=== PATIENT | female | born 1935 | race Caucasian/White ===

== ENCOUNTER 2017-07-10 09:49 | Emergency (ER) | payer MEDICARE, MEDICAID ==
[2017-07-10] MEDS ORDERED: Lidocaine 1% MPF wEPI 200,000* 30 ML SDV INJ ONE ×2 (10:08→11:00)
--- NOTE | 2017-07-10 10:08 | ED ---
Laceration/Wound HPI - HPI Summary HPI Summary: 81-year-old male presents with right leg laceration today. States she was stepping off the bus and slipped and cut her right leg. She states the area is actively bleeding. No numbness or tingling. She has a history of neuropathy. She denies any ankle or knee pain. she was able to put some weight on it. She has full range of motion of her ankle. She is unsure when last tetanus was. She denies any foreign body in the wound. She is not diabetic. - History of Current Complaint Stated Complaint: RT LEG LAC Time Seen by Provider: 07/10/17 09:52 Pain Intensity: 3 - Allergy/Home Medications Allergies/Adverse Reactions: Allergies Allergy/AdvReac Type Severity Reaction Status Date / Time MS Sulfa Drugs [Sulfa Drugs] AdvReac Intermediate GI Upset Verified 07/10/17 10: 00 Home Medications: Home Medications Aspirin EC TAB* [Ecotrin EC Low Dose 81 MG*] 81 mg PO DAILY 07/10/17 [History Confirmed 07/10/17] Diltiazem CD CAP* [Cardizem CD CAP*] 180 mg PO DAILY 07/10/17 [History Confirmed 07/10/17] Fluticasone/Umeclidin/Vilanter [Trelegy Ellipta 100-62.5-25 Mcg/INH] 1 aer INH DAILY 07/10/17 [History Confirmed 07/10/17] Gabapentin CAP(*) [Neurontin 300 CAP(*)] 300 mg PO BID PRN 07/10/17 [History Confirmed 07/10/17] Levothyroxine TAB* [Synthroid TAB*] 150 mcg PO DAILY 07/10/17 [History Confirmed 07/10/17] Melatonin (NF) [Meladox] 5 mg PO BEDTIME 07/10/17 [History Confirmed 07/10/17] Pramipexole TAB* [Mirapex TAB*] 0.5 - 1.5 mg PO BEDTIME PRN 07/10/17 [History Confirmed 07/10/17] PMH/Surg Hx/FS Hx/Imm Hx Endocrine/Hematology History: Reports: Other Endocrine/Hematological Disorders - hypothyroid Denies: Hx Diabetes, Hx Systemic Lupus Erythematosus Cardiovascular History: Reports: Hx Angina - PRINZ-METAL ANGINA, Hx Coronary Artery Disease - CHOLESTEROL CONTROL WITH MEDICATION, Hx Hypercholesterolemia, Hx Hypertension Denies: Hx Congestive Heart Failure Respiratory History: Reports: Hx Asthma, Hx Chronic Obstructive Pulmonary Disease (COPD), Other Respiratory Problems/Disorders - COPD GI History: Reports: Hx Diverticulosis, Hx Gastroesophageal Reflux Disease - HISTORY OF, Hx Ulcer History: Denies: Hx Dialysis, Hx Renal Disease Musculoskeletal History: Reports: Hx Arthritis - THUMBS BILAT, Other Musculoskeletal History - left shoulder Denies: Hx Rheumatoid Arthritis Sensory History: Reports: Hx Cataracts - BILATERAL, Hx Contacts or Glasses Denies: Hx Hearing Aid Opthamlomology History: Reports: Hx Cataracts - BILATERAL, Hx Contacts or Glasses Neurological History: Reports: Hx Headaches - LEFT SIDE OCCASIONALLY, Hx Migraine - HX OF, Other Neuro Impairments/Disorders - restless leg Psychiatric History: Reports: Hx Anxiety - per old hx., Hx Post Traumatic Stress Disorder - POSSIBLE - SEES A THERPIST - Cancer History Cancer Type, 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 Hx Chemotherapy: No - Surgical History Surgery Procedure, Year, and Place: cholectsectomy, dedatched labrium, left knee , facelift 98, right chest surgery attempted to remove a nodule 2012 Hx Anesthesia Reactions: No - Immunization History Date of Tetanus Vaccine: unknown Infectious Disease History: No Infectious Disease History: Denies: Traveled Outside the [place] in Last 30 Days - Social History Alcohol Use: Occasionally Alcohol Amount: 1 GLASS WINE 3 X WEEK Substance Use Type: Reports: None Smoking Status (MU): Former Smoker Type: Cigarettes Amount Used/How Often: 1 PPD FOR 20 YRS Length of Time of Smoking/Using Tobacco: QUIT 1975 Have You Smoked in the Last Year: No Review of Systems Negative: Fever Negative: Chest Pain Negative: Shortness Of Breath Positive: Other - right leg laceration All Other Systems Reviewed And Are Negative: Yes Physical Exam Triage Information Reviewed: Yes Vital Signs On Initial Exam: Initial Vitals Temp Pulse Resp BP Pulse Ox 97.9 F 74 18 151/79 97 07/10/17 09:57 07/10/17 09:57 07/10/17 09:57 07/10/17 09:57 07/10/17 09:57 Vital Signs Reviewed: Yes Appearance: Positive: Well-Appearing Skin: Positive: Warm, Dry, Other - 8cm by 1cm by 1/2cm deep v shape laceration right leg Head/Face: Positive: Normal Head/Face Inspection Eyes: Positive: Normal, Conjunctiva Clear ENT: Positive: Pharynx normal Respiratory/Lung Sounds: Positive: Clear to Auscultation, Breath Sounds Present Cardiovascular: Positive: Normal, RRR Musculoskeletal: Positive: Strength/ROM Intact - right leg, Other - good pulses Neurological: Positive: Normal Psychiatric: Positive: Normal Procedures - Laceration/Wound Repair 1 Location: Other - right leg pain Description: Irregular Anesthesia: Local, 1.0%, Epi Length, Depth and Shape: 8cm by 1cm by 1/2cm Betadine Prep?: Yes Irrigated w/ Saline (ccs): 1,000 Closure: Single Layer Suture Type: Prolene - 4-0 Number of Sutures: 24 - 8 vertical mattress, 16 simple suture Layer Closure?: No Sterile Dressing Applied?: Yes - xeroform, telfa, colleen Diagnostics - Vital Signs Vital Signs Temp Pulse Resp BP Pulse Ox 07/10/17 09:57 97.9 F 74 18 151/79 97 - Laboratory Lab Statement: Any lab studies that have been ordered have been reviewed, and results considered in the medical decision making process. - Radiology leg Xray Interpretation: No Acute Changes Radiology Interpretation Completed By: Radiologist Laceration Repair Course/Dx - Course Course Of Treatment: 81-year-old male presents with right leg laceration today. States she was stepping off the bus and slipped and cut her right leg. She states the area is actively bleeding. No numbness or tingling. She has a history of neuropathy. She denies any ankle or knee pain. she was able to put some weight on it. She has full range of motion of her ankle. She is unsure when last tetanus was. She denies any foreign body in the wound. She is not diabetic. On exam has 8 cm by 1 cm by 1/2cm v shaped laceration of right leg. Neurovascular intact. Full range of motion of right leg. X-ray normal. Cleaned area and placed 24 sutures. wound under alot of tension and so did not close completely. will have place xeroform on area and change dressing daily. told to place limited weight on area. patient understand and agrees with plan. - Differential Dx Differental Diagnoses: Abrasion, Avulsion, Laceration - Clinical Impression Provider Diagnoses: Laceration of right lower leg Discharge - Sign-Out/Discharge Documenting (check all that apply): Discharge/Admit/Transfer - Discharge Plan Condition: Good Disposition: HOME Prescriptions: Cephalexin CAP* [Keflex CAP*] 500 mg PO BID #9 cap Patient Education Materials: Care For Your Stitches (ED) Referrals: Mateo Zamorano MD [Primary Care Provider] - Additional Instructions: Take Tylenol or ibuprofen for pain every 6 hours Take keflex twice a day for 5 days Keep area clean and dry for 24 hours, change dressing once a day Return to ED or primary in 10-14 days to have sutures removed use a cane and try to stay off leg as much as possible ice, elevate Return to ED if develop signs of infection such as fever, spreading redness, or pus or any new or worsening symptoms. - Billing Disposition and Condition Condition: GOOD Disposition: HOME
[2017-07-10] MEDS ORDERED: Tetan/Diph/Pertus SYR(Tdap)* 0.5 ML SYR(BOOSTRIX) use SYR IM ONE (10:14)
--- NOTE | 2017-07-10 10:36 | RAD ---
Indication: Right leg laceration. 2 views of the right lower leg demonstrates laceration in the anterior portion of the lower extremity. No fracture is identified. IMPRESSION: Laceration with no evidence of radiopaque foreign body.
[2017-07-10] MEDS ORDERED: Cephalexin CAP* 500 MG PO ONE (10:37)
[2017-07-10] MEDS ORDERED: Ibuprofen TAB* 600 MG PO ONE (10:44)
[2017-07-10 13:53] VITALS: BP 120/70
== END 2017-07-10 13:52 | disposition home or self-care (01) ==
LOC: ED 09:49
DX: S81.811A Laceration without foreign body, right lower leg, initial encounter (principal); W01.0XXA Fall on same level from slipping, tripping and stumbling without subsequent striking against object, initial encounter; Y92.811 Bus as the place of occurrence of the external cause; Z79.82 Long term (current) use of aspirin; E03.9 Hypothyroidism, unspecified; E78.00 Pure hypercholesterolemia, unspecified; I10 Essential (primary) hypertension; Z85.118 Personal history of other malignant neoplasm of bronchus and lung; Z87.891 Personal history of nicotine dependence
CPT/HCPCS: 12004; 90471; 90715; 99282; A9270-GY; J2001

== ENCOUNTER 2017-07-21 06:27 | Emergency (ER) | payer MEDICARE, MEDICAID ==
--- NOTE | 2017-07-21 07:40 | ED ---
Skin Complaint - HPI Summary HPI Summary: Patient presents to the ED for a wound check. 11 days ago 24 sutures were placed with a combination of horizontal mattress and simple interrupted. Laceration is V-shaped, 8 centimeters in length by 1 cm in width. D/t avulsion , wound could not close completely. There is approximated 0.7 cm width of open tissue with granulation. She has continued to place gauze and abdominal bandages to the area and has not cleaned the area 10 days. Denies anticoagulation medications. She was not placed on antibiotics. Endorses pain without surrounding erythema. Denies any fevers, sweats, chills. Endorses some fluid drainage from the area without bleeding. - History of Current Complaint Chief Complaint: EDLacSutureRecheck Time Seen by Provider: 07/21/17 06:34 Stated Complaint: GENERAL ILLNESS Hx Obtained From: Patient Onset/Duration: Started Days Ago - 11 days Timing: Constant Onset Severity: Moderate Current Severity: Moderate Pain Intensity: 0 Pain Scale Used: 0-10 Numeric Aggravating Symptom(s): Nothing Alleviating Symptom(s): Nothing Associated Signs & Symptoms: Negative Related History: Trauma - Allergy/Home Medications Allergies/Adverse Reactions: Allergies Allergy/AdvReac Type Severity Reaction Status Date / Time Sulfa (Sulfonamide Allergy GI Upset Verified 07/21/17 06:32 Antibiotics) PMH/Surg Hx/FS Hx/Imm Hx Previously Healthy: Yes Endocrine/Hematology History: Reports: Other Endocrine/Hematological Disorders - hypothyroid Denies: Hx Diabetes, Hx Systemic Lupus Erythematosus Cardiovascular History: Reports: Hx Angina - PRINZ-METAL ANGINA, Hx Coronary Artery Disease - CHOLESTEROL CONTROL WITH MEDICATION, Hx Hypercholesterolemia, Hx Hypertension Denies: Hx Congestive Heart Failure Respiratory History: Reports: Hx Asthma, Hx Chronic Obstructive Pulmonary Disease (COPD), Other Respiratory Problems/Disorders - COPD GI History: Reports: Hx Diverticulosis, Hx Gastroesophageal Reflux Disease - HISTORY OF, Hx Ulcer History: Denies: Hx Dialysis, Hx Renal Disease Musculoskeletal History: Reports: Hx Arthritis - THUMBS BILAT, Other Musculoskeletal History - left shoulder Denies: Hx Rheumatoid Arthritis Sensory History: Reports: Hx Cataracts - BILATERAL, Hx Contacts or Glasses Denies: Hx Hearing Aid Opthamlomology History: Reports: Hx Cataracts - BILATERAL, Hx Contacts or Glasses Neurological History: Reports: Hx Headaches - LEFT SIDE OCCASIONALLY, Hx Migraine - HX OF, Other Neuro Impairments/Disorders - restless leg Psychiatric History: Reports: Hx Anxiety - per old hx., Hx Post Traumatic Stress Disorder - POSSIBLE - SEES A THERPIST - Cancer History Cancer Type, 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 Hx Chemotherapy: No - Surgical History Surgery Procedure, Year, and Place: cholectsectomy, dedatched labrium, left knee , facelift 98, right chest surgery attempted to remove a nodule 2012 Hx Anesthesia Reactions: No - Immunization History Date of Tetanus Vaccine: unknown Hx Pertussis Vaccination: No Immunizations Up to Date: Unable to Obtain/Confirm Infectious Disease History: No Infectious Disease History: Denies: Traveled Outside the [place] in Last 30 Days - Social History Occupation: Unemployed Lives: Alone Alcohol Use: Occasionally Alcohol Amount: 1 GLASS WINE 3 X WEEK Hx Substance Use: No Substance Use Type: Reports: None Smoking Status (MU): Former Smoker Type: Cigarettes Amount Used/How Often: 1 PPD FOR 20 YRS Length of Time of Smoking/Using Tobacco: QUIT 1975 Have You Smoked in the Last Year: No Review of Systems Constitutional: Negative Negative: Fever, Chills, Fatigue Negative: Shortness Of Breath, Cough Genitourinary: Negative Positive: no symptoms reported, see HPI Negative: Arthralgia, Myalgia Positive: Other Neurological: Negative Psychological: Normal All Other Systems Reviewed And Are Negative: Yes Physical Exam Triage Information Reviewed: Yes Vital Signs On Initial Exam: Initial Vitals Temp Pulse Resp BP Pulse Ox 97.8 F 77 18 148/58 96 07/21/17 06:29 07/21/17 06:29 07/21/17 06:29 07/21/17 06:29 07/21/17 06:29 Vital Signs Reviewed: Yes Appearance: Positive: Well-Appearing, Well-Nourished Skin: Positive: Other - 8cm wound - v shaped. dehiscense with granulated tissue /necrosing tissue to wound Head/Face: Positive: Normal Head/Face Inspection Eyes: Positive: EOMI, CYRIL, Conjunctiva Clear Neck: Positive: Supple, No Lymphadenopathy Respiratory/Lung Sounds: Positive: Clear to Auscultation, Breath Sounds Present Cardiovascular: Positive: RRR, Pulses are Symmetrical in both Upper and Lower Extremities Neurological: Positive: Sensory/Motor Intact, Other - pulses +2 intact bilaterally Psychiatric: Positive: Normal, Affect/Mood Appropriate AVPU Assessment: Verbal (Reponds To) Diagnostics - Vital Signs Vital Signs Temp Pulse Resp BP Pulse Ox 07/21/17 06:29 97.8 F 77 18 148/58 96 - Laboratory Lab Statement: Any lab studies that have been ordered have been reviewed, and results considered in the medical decision making process. Course/Dx - Course Course Of Treatment: On physical examination there is no crusting tissue to the flap of the avulsed skin. There is approximately a 0.7 cm gap of tissue with serous fluid. No bleeding or pus drainage from the wound. 24 sutures were placed 11 days ago, 4 sutures removed today. I am concerned for a further wound dehiscence if the remaining sutures are removed. I've encouraged her to follow up with the wound care clinic as this will be several weeks of healing due to dehiscence, lack of tissue granulation or healing and necrosing superficial skin. I have removed 4 sutures d/t adequate closure to the medial side of the wound. I will at this time defer to the wound clinic for suture removal and further wound care. I have called wound clinic and secured an 8am appt with Dr. Dior. - Diagnoses Provider Diagnoses: Granulation tissue following laceration Discharge - Sign-Out/Discharge Documenting (check all that apply): Discharge/Admit/Transfer - Discharge Plan Condition: Stable Disposition: HOME Referrals: Clinton Dior MD [Medical Doctor] - Mateo Zamorano MD [Primary Care Provider] - Additional Instructions: You have an appointment tomorrow morning at [address] Dior - Billing Disposition and Condition Condition: STABLE Disposition: HOME
[2017-07-21 08:35] VITALS: BP 141/57
== END 2017-07-21 08:33 | disposition home or self-care (01) ==
LOC: ED 06:27
DX: L92.9 Granulomatous disorder of the skin and subcutaneous tissue, unspecified (principal); E03.9 Hypothyroidism, unspecified; I25.10 Atherosclerotic heart disease of native coronary artery without angina pectoris; J44.9 Chronic obstructive pulmonary disease, unspecified; E78.00 Pure hypercholesterolemia, unspecified; F41.9 Anxiety disorder, unspecified; Z85.118 Personal history of other malignant neoplasm of bronchus and lung; Z87.891 Personal history of nicotine dependence
CPT/HCPCS: 99282

== ENCOUNTER 2022-10-17 10:31 | Observation (INO) ==
[2022-10-17 13:53] LABS: Hematocrit 44.1 % (35-45); Hemoglobin 15.2 g/dL (11.5-14.3); Mean Corpuscular Hemoglobin 31.7 pg (27-33); Mean Corpuscular Hgb Conc 34.4 g/dL (31-36); Mean Corpuscular Volume 92.1 fL (80-97); Mean Platelet Volume 9.2 fL (7.5-11.2); Platelet Count 189 10^3/uL (150-450); Red Blood Count 4.79 10^6/uL (3.63-4.92); Red Cell Distribution Width 12.9 % (12-17); White Blood Count 5.7 10^3/uL (3.8-11.8)
[2022-10-17 14:11] LABS: C Reactive Protein 1.16 mg/L (<8.01); Calcium 9.6 mg/dL (8.6-10.3); Creatinine, Serum 1.36 mg/dL (0.51-0.95); Potassium 4.7 mmol/L (3.5-5.0); eGFR CKD-EPI 37.2 (>60)
[2022-10-17 15:35] LABS: Urine Appearance Cloudy; Urine Bilirubin Negative (Negative); Urine Blood Negative (Negative); Urine Color Yellow; Urine Glucose Negative (Negative); Urine Ketones Negative (Negative); Urine Nitrite Positive (Negative); Urine Protein 1+(30 mg/dL) (Negative); Urine Specific Gravity 1.023 (1.002-1.030); Urine Urobilinogen Negative (Negative)
[2022-10-17] MEDS ORDERED: hydrALAZINE 20 mg/ml 1 ML Vial IV IV SLOW PU ONE ×2 (15:40→16:23)
[2022-10-17 15:53] LABS: Urine Bacteria 1+ (Absent); Urine Red Blood Cell 3+(>10/hpf) (Absent); Urine Squamous Epithelial Cell Present (Absent); Urine White Blood Cell 3+(>20/hpf) (Absent)
[2022-10-17 16:50] LABS: High Sensitivity Troponin 1 Hr 5 pg/mL (<15)
[2022-10-17] MEDS ORDERED: Levalbuterol HFA INHALER MDI INH PRN (19:07)
[2022-10-18 06:32] LABS: ABS Basophils 0.1 10^3/uL (0.0-0.1); ABS Eosinophils 0.2 10^3/uL (0.0-0.5); ABS Lymphocytes 2.1 10^3/uL (1.0-4.8); ABS Monocytes 0.4 10^3/uL (0.0-0.9); ABS Neutrophils 3.6 10^3/uL (1.5-7.6); ABS Nucleated RBC 0.02 10^3/ul; Eosinophil % 2.6 %; Hematocrit 44.3 % (35-45); Hemoglobin 15.3 g/dL (11.5-14.3); Lymphocyte % 33.2 %; Mean Corpuscular Hemoglobin 31.8 pg (27-33); Mean Corpuscular Hgb Conc 34.5 g/dL (31-36); Mean Corpuscular Volume 92.1 fL (80-97); Mean Platelet Volume 9.8 fL (7.5-11.2); Nucleated Red Blood Cells % 0.4 /100 WBC (0.0-0.4); Platelet Count 194 10^3/uL (150-450); Red Blood Count 4.81 10^6/uL (3.63-4.92); Red Cell Distribution Width 13.1 % (12-17); White Blood Count 6.3 10^3/uL (3.8-11.8)
[2022-10-18 06:54] LABS: Calcium 9.2 mg/dL (8.6-10.3); Creatinine, Serum 1.37 mg/dL (0.51-0.95); Magnesium 2.1 mg/dL (1.9-2.7); Potassium 4.6 mmol/L (3.5-5.0); eGFR CKD-EPI 36.9 (>60)
[2022-10-18] MEDS ORDERED: Regadenoson 0.4 MG/5 ML SYRINGE ONE (07:33)
[2022-10-18] MEDS ORDERED: IBANDRONATE 150 MG PO SCH (09:00)
[2022-10-18] MEDS ORDERED: FLUTICAS/UMECLI/VILANT 100-62.5-25 MDI (NF) INH SCH (09:00)
[2022-10-18 11:06] VITALS: BP 155/65
== END 2022-10-18 10:46 | disposition home or self-care (01) ==
LOC: EDHOLD 10:31 → ED 10:31 → EDHOLD 10-18 10:45
PROVIDERS: ADMIT Internal Medicine; ATTEND Internal Medicine